=== PATIENT | male | born 1995 | race Caucasian/White ===

== ENCOUNTER 2023-10-18 18:09 | Outpatient (CLI) | payer OTHER, SELFPAY | END 2023-10-18 18:10 | disposition home or self-care (01) | PROVIDERS: PCP Family Medicine; Visit Provider Family Medicine | DX: I10 Essential (primary) hypertension (principal); R10.9 Unspecified abdominal pain | CPT/HCPCS: 80061; 80076; 85651; 86258; 86364 ==

== ENCOUNTER 2025-04-30 10:55 | Outpatient (CLI) | payer OTHER, SELFPAY | END 2025-04-30 10:56 | disposition home or self-care (01) | LOC: LKVREF 10:56 | PROVIDERS: PCP Family Medicine; Visit Provider Family Medicine | DX: E78.00 Pure hypercholesterolemia, unspecified (principal); I10 Essential (primary) hypertension; R77.9 Abnormality of plasma protein, unspecified | CPT/HCPCS: 80053; 80061 ==